=== PATIENT | male | born 1965 | race Caucasian/White ===

== ENCOUNTER 2020-07-16 14:07 | Emergency (ER) | payer SELFPAY ==
[~2020-07-16] VITALS: Ht 162.6 cm; Wt 63.5 kg
--- NOTE | 2020-07-16 14:07 | NUR ---
Patient BIBA ALS, transferred to bed 10. RN evaluating the patient at bedside.
[2020-07-16 14:16] VITALS: BP 112/53
--- NOTE | 2020-07-16 14:25 | NUR ---
55 Y/O M YAIRJennifer FROM [facility]. PER EMS, PT ONE HOUR INTO DIALYSIS WHEN BEGUN FEELING WEAK AND DIZZY. DIALYSIS STOPPED AT FACILITY AND WAS GIVEN 1 LITTER NS BOLUS/OXYGEN. PER EMS PT IMPROVED AND WEAKNESS/DIZZINESS RESOLVED. PT SENT BY DIALYSIS FOR FURTHER EVALUATION. PT PRESENTS A/OX4, TURKMEN PRIMARY,EUPNIC,VSS. PER PT FEELS BETTER, DIALYSIS TREATMENT M/W/F - 4 HOUR SESSIONS. PT WITH RIGHT UPPER CHEST DIALYSIS ACCESS. PT NKA. HX RENAL FAILURE,DM,HTN.
--- NOTE | 2020-07-16 14:34 | NUR ---
RAD AT BEDSIDE
--- NOTE | 2020-07-16 14:44 | NUR ---
EMT AT BEDSIDE FOR EKG
[2020-07-16 15:07] LABS: BASOPHILS # (AUTO) 0.1 K/uL (0.00-0.22); EOSINOPHILS # (AUTO) 0.4 K/uL (0-0.4); EOSINOPHILS % (AUTO) 2.7 % (0.0-4.0); LYMPHOCYTES # (AUTO) 0.9 K/uL (2.0-11.5); LYMPHOCYTES % (AUTO) 6.6 % (20.5-51.1); MEAN CORPUSCULAR HEMOGLOBIN 29 pg (27-31); MEAN CORPUSCULAR HGB CONC 32 g/dL (33-37); MEAN CORPUSCULAR VOLUME 89.5 fL (80-94); MONOCYTES # (AUTO) 1.2 K/uL (0.8-1.0); MONOCYTES % (AUTO) 8.7 % (1.7-9.3); PLATELET COUNT (AUTO) 281 K/uL (140-450); RED BLOOD CELL COUNT(AUTO) 3.46 MIL/uL (4.20-6.10); RED CELL DISTRIBUTION WIDTH 15.8 % (11.6-13.7); WHITE BLOOD COUNT (AUTO) 13.6 K/uL (4.8-10.8)
[2020-07-16 15:44] LABS: CREATINE KINASE MB 2.3 ng/mL (0-3.6)
[2020-07-16 16:30] LABS: ALBUMIN 2.4 g/dL (3.4-5.0); ANION GAP 15.9 (8-16); CARBON DIOXIDE 26.5 mmol/L (21-32); POTASSIUM 4.4 mmol/L (3.5-5.1); TOTAL BILIRUBIN 0.2 mg/dL (0.0-1.0)
[2020-07-16 16:32] LABS: CREATININE 5.4 mg/dL (0.6-1.3)
--- NOTE | 2020-07-16 16:43 | NUR ---
NOTIFIED LAB THAT ERMD ORDERED PT PTT/PT/INR
[2020-07-16 17:13] LABS: PROTHROMBIN TIME 10.2 secs (10.8-13.4)
[2020-07-16] MEDS ORDERED: ASPIRIN 81 MG TAB.CHEW PO ONE (17:55)
--- NOTE | 2020-07-16 18:02 | NUR ---
pt resting in [facility] srinivasan. Connected on bedside monitor.
--- NOTE | 2020-07-16 19:04 | NUR ---
REPORT RECEIVED FROM MAGGY HINKLE FOR CONTINUITY OF CARE
[2020-07-16 19:38] VITALS: BP 127/64
--- NOTE | 2020-07-16 19:38 | NUR ---
Patient discharged with v/s stable. Written and verbal after care instructions given and explained. Patient verbalized understanding. Wheel Chair Assisted with to car. IV Discontinued. ID Band Removed. All questions addressed prior to discharge. Advised to follow up with PMD.
== END 2020-07-16 19:38 | disposition home or self-care (01) ==
LOC: MED 14:07
DX: R53.1 Weakness (principal); I51.9 Heart disease, unspecified; E11.9 Type 2 diabetes mellitus without complications; R42 Dizziness and giddiness
CPT/HCPCS: 36415; 71045; 80053; 82550; 82553; 83690; 83880; 84484; 85025; 85610; 85730; 93005; 99285; Q0092

== ENCOUNTER 2020-09-03 13:14 | Inpatient (IN) | payer OTHER, SELFPAY ==
[~2020-09-03] VITALS: Ht 167.6 cm; Wt 59.0 kg
[2020-09-03 13:17] VITALS: BP 101/54
[2020-09-03] MEDS ORDERED: ONDANSETRON 4 MG/2 ML VIAL IVP ONE (13:30)
--- NOTE | 2020-09-03 13:30 | NUR ---
PT TAKEN TO BED 3.
--- NOTE | 2020-09-03 13:47 | NUR ---
DENY FROM DIALYSIS CENTER C/O N/V X1 TODAY; PT WAS AT DIALYSIS WAITING FOR TX, DID NOT RECEIVE DIALYSIS, WHILE WAITING FOR DIALYSIS PATIENT HAD VOMITING X1. PT HAS NO COMPLAINTS AT THIS TIME UPON ARRIVAL A, A, O x4, COOPERATIVE, MOVING ALL EXTS W/O DIFFICULTY CONNECTED TO VENDING MACHINE COIN COLLECTOR, IN NAD, VVS RESP EVEN AND UNLABORED, HOB ELEVATED NKDA, HX ESRD, DIALYSIS, LEFT ARM SHUNT, DM AWAITING EVALUATION/EXAMINATION BY MD, WILL CONTINUE TO MONITOR
[2020-09-03 14:12] LABS: BASOPHILS # (AUTO) 0.1 K/uL (0.00-0.22); BASOPHILS % (AUTO) 0.8 % (0.0-2.0); EOSINOPHILS # (AUTO) 0.3 K/uL (0-0.4); HEMOGLOBIN 8.4 g/dL (12.0-18.0); LYMPHOCYTES # (AUTO) 0.9 K/uL (2.0-11.5); LYMPHOCYTES % (AUTO) 8.8 % (20.5-51.1); MEAN CORPUSCULAR HEMOGLOBIN 31 pg (27-31); MEAN CORPUSCULAR HGB CONC 34 g/dL (33-37); MEAN CORPUSCULAR VOLUME 91.5 fL (80-94); MONOCYTES # (AUTO) 0.7 K/uL (0.8-1.0); MONOCYTES % (AUTO) 6.8 % (1.7-9.3); NEUTROPHILS # (AUTO) 8.6 K/uL (1.8-7.7); NEUTROPHILS % (AUTO) 80.6 % (42.2-75.2); PLATELET COUNT (AUTO) 342 K/uL (140-450); RED BLOOD CELL COUNT(AUTO) 2.74 MIL/uL (4.20-6.10); WHITE BLOOD COUNT (AUTO) 10.7 K/uL (4.8-10.8)
[2020-09-03 14:45] LABS: ALBUMIN 2.9 g/dL (3.4-5.0); ANION GAP 13.3 (8-16); CARBON DIOXIDE 30.1 mmol/L (21-32); POTASSIUM 4.4 mmol/L (3.5-5.1); TOTAL BILIRUBIN 0.3 mg/dL (0.0-1.0)
[2020-09-03 15:02] LABS: CREATININE 5.4 mg/dL (0.6-1.3)
--- NOTE | 2020-09-03 15:03 | NUR ---
BUN 77, creatinine 5.4--critical values received from lab. Dr Hurd made aware
--- NOTE | 2020-09-03 19:30 | NUR ---
REPORT RECIEVED FROM AGENCY RN. TRANSFER OF CARE AT THIS TIME.
--- NOTE | 2020-09-03 19:31 | NUR ---
Detailed report given to ARIN Marsh for transfer of care Questions answered, orders and meds reviewed
[2020-09-03] MEDS ORDERED: cefTRIAXone 1,000 MG VIAL ONE (20:02)
--- NOTE | 2020-09-03 20:20 | NUR ---
right forearm iv infiltarted during ivpb infusion. IV DC'd. warm compress provided. pt reports no pain at site, no redness or bruising noted.
--- NOTE | 2020-09-03 20:30 | NUR ---
SANDWHICH AND WATER PROVIDED TO PT AFTER DIETARY DID NOT BRING PT DINNER TRAY. ALL PT NEEDS MET AT THIS TIME. BED LOCKED AND IN LOWEST POSITION. SIDE RAILS X1
[2020-09-03] MEDS ORDERED: LORazepam 1 MG TAB PO PRN (20:45)
[2020-09-03] MEDS ORDERED: HYDROcodone/APAP 5/325 MG 1 TAB TAB PO PRN (20:45)
[2020-09-03] MEDS ORDERED: ACETAMINOPHEN 325 MG TAB PO PRN (20:45)
[2020-09-03] MEDS ORDERED: ZOLPIDEM 5 MG TAB PO PRN (20:45)
[2020-09-03] MEDS ORDERED: ONDANSETRON 4 MG/2 ML VIAL IVP PRN (20:45)
[2020-09-03] MEDS: AZITHROMYCIN 500 MG in DEXTROSE 5% 250 ML IV SCH (21:00)
--- NOTE | 2020-09-03 21:30 | NUR ---
CALLED TO GIVE REPORT TO ARIN MACHADO.
[2020-09-03 21:45] VITALS: BP 116/58
--- NOTE | 2020-09-03 21:45 | NUR ---
Patient will be admitted to care of ALEXANDRO. Admited to TELE. Will go to room 111B. Belongings list completed. Report to ARIN MACHADO.
--- NOTE | 2020-09-03 21:45 | NUR ---
RECEIVED REPORT FROM ER NURSE, BELLA. PT ON TELE, AOX4 ON ROOM AIR. NO S/S RESPIRATORY DISTRESS. NO C/O PAIN AT THIS TIME. IV SITE AFSHIN 20G, PATENT AND INTACT. HAS LEFT UPPER ARM SHUNT, HAS DIALYSIS ACCESS ON RIGHT CHEST. BOWEL SOUNDS ACTIVE. SKIN WARM AND DRY. HAS LEFT FOOT WRAPPED WITH DRESSING WITH PROTECTIVE SANDALS ON. ORIENTED PT TO ROOM AND HOSPITAL. SAFETY MEASURES IN PLACE. CALL LIGHT WITHIN REACH. WILL CONTINUE TO MONITOR. VS: TEMP 97.8, O2 SAT 99%, RR 18, BP 116/58, HR 81
[2020-09-03] MEDS ORDERED: AZITHROMYCIN 500 MG INJ VIAL IV ONE (22:09)
--- NOTE | 2020-09-03 22:45 | NUR ---
ADMINISTERED SCHEDULED MEDICATION. PT TOLERATED WELL. NO DISTRESS NOTED. WILL CONTINUE TO MONITOR
--- NOTE | 2020-09-03 23:15 | NUR ---
PT AWAKE IN BED, DENIES PAIN, DENIES NAUSEA AND VOMITING. NO DISTRESS NOTED. WILL CONTINUE TO MONITOR
[2020-09-04] VITALS: BP 130/60
--- NOTE | 2020-09-04 00:20 | NUR ---
PT ASLEEP IN BED. RESPIRATIONS EVEN AND UNLABORED. NO DISTRESS NOTED. WILL CONTINUE TO MONITOR
--- NOTE | 2020-09-04 02:59 | NUR ---
PT SLEEPING IN BED COMFORTABLY. NO DISTRESS NOTED. WILL CONTINUE TO MONITOR
[2020-09-04 04:00] VITALS: BP 109/94
--- NOTE | 2020-09-04 04:31 | NUR ---
PT AWAKE IN BED HAVING A SNACK. DENIES NAUSEA, VOMITING, PAIN. NO DISTRESS NOTED. WILL CONTINUE TO MONITOR
[2020-09-04 06:57] LABS: BASOPHILS # (AUTO) 0.1 K/uL (0.00-0.22); BASOPHILS % (AUTO) 1.1 % (0.0-2.0); EOSINOPHILS # (AUTO) 0.4 K/uL (0-0.4); EOSINOPHILS % (AUTO) 4.3 % (0.0-4.0); HEMATOCRIT 25.6 % (36-52); HEMOGLOBIN 8.4 g/dL (12.0-18.0); LYMPHOCYTES # (AUTO) 0.8 K/uL (2.0-11.5); LYMPHOCYTES % (AUTO) 10.1 % (20.5-51.1); MEAN CORPUSCULAR HEMOGLOBIN 31 pg (27-31); MEAN CORPUSCULAR HGB CONC 33 g/dL (33-37); MEAN CORPUSCULAR VOLUME 92.7 fL (80-94); MONOCYTES # (AUTO) 0.8 K/uL (0.8-1.0); NEUTROPHILS # (AUTO) 6.3 K/uL (1.8-7.7); NEUTROPHILS % (AUTO) 75.5 % (42.2-75.2); PLATELET COUNT (AUTO) 330 K/uL (140-450); RED BLOOD CELL COUNT(AUTO) 2.76 MIL/uL (4.20-6.10); RED CELL DISTRIBUTION WIDTH 15.7 % (11.6-13.7); WHITE BLOOD COUNT (AUTO) 8.3 K/uL (4.8-10.8)
--- NOTE | 2020-09-04 07:15 | NUR ---
ENDORSED PT TO DAY RN FOR CONTINUITY OF CARE. PT IS IN STABLE CONDITION
[2020-09-04 07:16] LABS: CHOL/HDL RATIO 3.4 (1-4.5); MAGNESIUM 2.6 mg/dL (1.8-2.4); PHOSPHORUS 5.5 mg/dL (2.5-4.9)
[2020-09-04 07:18] LABS: ALBUMIN 2.7 g/dL (3.4-5.0); ANION GAP 14.5 (8-16); CARBON DIOXIDE 27.3 mmol/L (21-32); POTASSIUM 4.8 mmol/L (3.5-5.1); TOTAL BILIRUBIN 0.3 mg/dL (0.0-1.0)
--- NOTE | 2020-09-04 07:20 | NUR ---
RECEIVED PT FROM BULL BUCKER NURSE, PT IS AWAKE AND ALERT IN BED, 20 G IV NOTED TO AFSHIN SALINE LOCK, IVAN SHUNT, R CHEST DIALYSIS ACCESS, ON ROOM AIR, TELE MONITOR ON, PT VERBALIZED HE MISSED DIALYSIS ON SUNDAY, CONTINENT, SAFETY AND FALL PRECAUTIONS IN PLACE, WILL CONTINUE TO MONITOR
[2020-09-04 08:00] VITALS: BP 155/59
[2020-09-04 08:13] LABS: CREATININE 6.2 mg/dL (0.6-1.3)
[2020-09-04] MEDS: DOCUSATE SODIUM 100 MG GELCAP PO SCH (08:15)
--- NOTE | 2020-09-04 09:15 | NUR ---
PT IS AWAKE AND WATCHING TV, VERBALIZED HIS MISSED DIALYSIS TREATMENT ON SUNDAY, WILL CONTACT NEPHRO MD TO INITIATE DIALYSIS ORDER AND TREATMENT, WILL CONTINUE TO MONITOR.
--- NOTE | 2020-09-04 11:00 | NUR ---
PT RESTING IN BED, NO DISTRESS NOTED, WILL CONTINUE TO MONITOR
[2020-09-04 12:00] VITALS: BP 159/66
--- NOTE | 2020-09-04 13:28 | NUR ---
DR. GARCIA CAME TO PT'S ROOM AND SPOKE TO PT AND INFORMED PT THAT HE HAD COORDINATED WITH THE GLOBAL COMMODITY MANAGER AND VERBALIZED TO PT THAT DIALYSIS WILL BE DONE TODAY AND PT VERBALIZED UNDERSTANDING.
--- NOTE | 2020-09-04 15:06 | NUR ---
DIALYSIS NURSE, RAMONA CALLED AND SAID THAT DR. TAMAYO CALLED HER REGARDING PT AND ASKED ALSO ABOUT THE PT'S BMP AND HEMATOLOGY RESULT AND VERBALIZED THAT PT WILL HAVE DIALYSIS TODAY
[2020-09-04 16:00] VITALS: BP 159/72
[2020-09-04] MEDS ORDERED: MIDODRINE 5 MG TAB PO PRN (18:05)
--- NOTE | 2020-09-04 18:30 | NUR ---
PROAMATINE WAS NOT GIVEN TO PT DUE TO BP IS 200/80, PULSE IS 84, [id number] IS AT 97%.
--- NOTE | 2020-09-04 18:30 | NUR ---
DIALYSIS NURSE IS AT BEDSIDE AND BEGINNING DIALYSIS TREATMENT, WILL CONTINUE TO MONITOR.
--- NOTE | 2020-09-04 19:40 | NUR ---
ENDORSED PT TO INTERNATIONAL BANK MANAGER NURSE FOR CONTINUITY OF CARE.
--- NOTE | 2020-09-04 19:41 | NUR ---
RECEIVED BEDSIDE ENDORSEMENT FROM AM SHIFT RN. ON HD W/ DIALYSIS NURSE AT BEDSIDE, ON ROOM AIR, NO DISTRESS, AFSHIN G 20, INTACT, WITH IVAN AV SHUNT BUT THE HD NURSE IS USING THE RT UPPER CHEST TUNNELLED CATHETER FOR DIALYSIS, WITH LEFT PLANTAR AREA OPEN WOUND PER ENDORSED WITH CONSULT. SAFETY MEASURES IN PLACE, FALL PROTOCOL IN PLACE, PLAN OF CARE DISCUSSED, CALL LIGHT WITHIN REACH.
[2020-09-04 20:00] VITALS: BP 140/68
--- NOTE | 2020-09-04 22:40 | NUR ---
INFORMED GRANT ADMINISTRATOR DR. ROWE FOR TROP 0.504. PT IS NOT IN DISTRESS, NO C/O PAIN, PT SLEEPING, RESPIRATION EVEN AND UNLABORED. NO NEW ORDER. NOTED. WILL CONTINUE TO MONITOR.
--- NOTE | 2020-09-04 22:58 | NUR ---
DIALYSIS WAS FINISHED AT 2215. 3 LITERS WAS TAKEN OUT. ROCEPHIN IV GIVEN ORDERED, NO A/R NOTED. NO DISTRESS, NO C/O PAIN.
[2020-09-04] MEDS: AZITHROMYCIN 500 MG in DEXTROSE 5% 250 ML IV SCH (23:36)
--- NOTE | 2020-09-04 23:38 | NUR ---
ZITHROMAX IV GIVEN ORDERED, NO A/R NOTED.
[2020-09-05] VITALS: BP 159/65
--- NOTE | 2020-09-05 01:00 | NUR ---
SLEEPING COMFORTABLY IN BED.
--- NOTE | 2020-09-05 02:00 | NUR ---
LAYING SUPINE IN BED ASLEEP. NO APPEARANCE OF DISCOMFORT NOTED.
[2020-09-05 04:00] VITALS: BP 160/68
--- NOTE | 2020-09-05 04:00 | NUR ---
VS STABLE. NO COMPLAINT OF PAIN 0/10.
--- NOTE | 2020-09-05 07:04 | NUR ---
ABLE TO SLEEP WELL. CONDITION REMAIN STABLE. ENDORSED TO AM SHIFT NURSE FOR CONTINUITY OF CARE.
--- NOTE | 2020-09-05 07:05 | NUR ---
PATIENT HAS BEEN SCREENED AND CATEGORIZED HIGH NUTRITION RISK. PATIENT WILL BE SEEN WITHIN 1-2 DAYS OF ADMISSION. 09/05/20-09/06/20 SAMUEL VANG MS, RDN
[2020-09-05 08:00] VITALS: BP 148/52
[2020-09-05] MEDS: DOCUSATE SODIUM 100 MG GELCAP PO SCH (09:13)
--- NOTE | 2020-09-05 09:16 | NUR ---
SCHEDULED MEDICATIONS DUE GIVEN. WILL CONTINUE TO MONITOR.
[2020-09-05 10:22] LABS: BASOPHILS # (AUTO) 0.1 K/uL (0.00-0.22); BASOPHILS % (AUTO) 1.2 % (0.0-2.0); EOSINOPHILS # (AUTO) 0.4 K/uL (0-0.4); HEMATOCRIT 28.2 % (36-52); HEMOGLOBIN 9.3 g/dL (12.0-18.0); LYMPHOCYTES # (AUTO) 0.6 K/uL (2.0-11.5); MEAN CORPUSCULAR HEMOGLOBIN 31 pg (27-31); MEAN CORPUSCULAR HGB CONC 33 g/dL (33-37); MEAN CORPUSCULAR VOLUME 93.7 fL (80-94); MONOCYTES # (AUTO) 0.5 K/uL (0.8-1.0); MONOCYTES % (AUTO) 7.7 % (1.7-9.3); NEUTROPHILS # (AUTO) 4.8 K/uL (1.8-7.7); NEUTROPHILS % (AUTO) 75.1 % (42.2-75.2); PLATELET COUNT (AUTO) 350 K/uL (140-450); RED BLOOD CELL COUNT(AUTO) 3.01 MIL/uL (4.20-6.10); RED CELL DISTRIBUTION WIDTH 16.2 % (11.6-13.7); WHITE BLOOD COUNT (AUTO) 6.4 K/uL (4.8-10.8)
[2020-09-05] MEDS ORDERED: INSULIN LISPRO SLIDING SCALE 100 UNITS/ML VIAL SUBQ PRN (10:40)
[2020-09-05] MEDS ORDERED: DEXTROSE 50% 50 ML SYR IVP PRN (10:40)
[2020-09-05 10:42] LABS: ALBUMIN 2.6 g/dL (3.4-5.0); ANION GAP 15.6 (8-16); CARBON DIOXIDE 26.6 mmol/L (21-32); MAGNESIUM 2.2 mg/dL (1.8-2.4); PHOSPHORUS 4.5 mg/dL (2.5-4.9); POTASSIUM 4.2 mmol/L (3.5-5.1); TOTAL BILIRUBIN 0.3 mg/dL (0.0-1.0)
[2020-09-05 10:47] LABS: CREATININE 4.5 mg/dL (0.6-1.3)
[2020-09-05] MEDS ORDERED: NIFE90TE45 PO (11:15)
[2020-09-05] MEDS ORDERED: INSU100V6 SQ (11:15)
[2020-09-05] MEDS ORDERED: LOSA50TA57 PO (11:15)
[2020-09-05] MEDS ORDERED: MULT-574 (11:15)
[2020-09-05] MEDS ORDERED: ASPI-1856 PO (11:15)
[2020-09-05] MEDS ORDERED: INSU100I7 SQ (11:15)
[2020-09-05] MEDS ORDERED: ATOR40TA40 (11:15)
[2020-09-05] MEDS ORDERED: [UNRECOGNIZED DRUG - CODE] PO (11:15)
[2020-09-05] MEDS ORDERED: AZIT250T3 PO (11:16)
[2020-09-05 11:25] LABS: EOSINOPHILS % (AUTO) 6.7 % (0.0-4.0); LYMPHOCYTES % (AUTO) 9.3 % (20.5-51.1)
[2020-09-05] MEDS ORDERED: INSULIN LISPRO 100 UNITS/ML VIAL SUBQ SCH (11:30)
[2020-09-05] MEDS ORDERED: BLOOD GLUCOSE MONITORING 1 DEV DEV FS SCH (11:30)
[2020-09-05] MEDS ORDERED: LOSARTAN 50 MG TAB PO SCH (11:30)
[2020-09-05] MEDS ORDERED: ECOTRIN 81 MG TABEC PO SCH (11:30)
[2020-09-05] MEDS ORDERED: NIFEdipine 60 MG TABER PO SCH (11:30)
[2020-09-05] MEDS ORDERED: INSULIN LANTUS 100 UNITS/ML 10 ML VIAL SUBQ SCH (11:30)
[2020-09-05 12:00] VITALS: BP 103/65
--- NOTE | 2020-09-05 12:41 | NUR ---
SCHEDULED MEDICATIONS DUE GIVEN. WILL CONTINUE TO MONITOR.
[2020-09-05] MEDS ORDERED: hydrALAZINE 10 MG TAB PO SCH (13:00)
--- NOTE | 2020-09-05 15:00 | NUR ---
DISCHARGE INSTRUCTIONS PROVIDED TO PATIENT IN PREFERRED LANGUAGE OF WELSH. INSTRUCTIONS ON FOLLOW-UP VISIT WITH PCP, FIELD ARTILLERY OFFICER AND AIR BRAKE MECHANIC PROVIDED TO PATIENT. ANSWERED ALL OF PATIENT'S QUESTIONS REGARDING DISCHARGE. INSTRUCTIONS ON NEW/CHANGED MEDICATION REGIMEN AND SIDE EFFECTS, PROVIDED. IV SITE REMOVED WITH MINIMAL BLOOD AND LUMEN COMPLETELY INTACT. PATIENT AWAITING FOR FAMILY MEMBER TO ARRIVE TO TAKE PATIENT HOME. WILL CONTINUE TO MONITOR.
--- NOTE | 2020-09-05 16:30 | NUR ---
PATIENT'S FAMILY AT [facility] READY TO TAKE PATIENT HOME. IV SITE REMOVED WITH MINIMAL BLOOD AND LUMEN COMPLETELY INTACT. ID BANDS REMOVED. ESCORTED PATIENT DOWN TO [facility] VIA WHEELCHAIR. PATIENT DISCHARGED AT THIS TIME TO HOME IN A PRIVATE VEHICLE IN STABLE CONDITION.
[2020-09-06] MEDS ORDERED: ATORVASTATIN 20 MG TAB PO SCH (09:00)
[2020-09-06] MEDS ORDERED: VIT-B COMP/VIT-C/FOLIC ACID 1 TAB PO SCH (09:00)
--- NOTE | 2020-09-06 10:46 | NUR ---
Wound consult not done, pt. discharged.
== END 2020-09-05 17:26 | disposition home or self-care (01) | DRG 139 ==
LOC: MED 13:14 → MTU 18:27
PROVIDERS: ADMIT Hospitalist; ATTEND Hospitalist
PROC: 5A1D70Z Performance of Urinary Filtration, Intermittent, Less than 6 Hours Per Day (ICD-10-PCS; principal; 2020-09-04)
DX: J18.9 Pneumonia, unspecified organism (principal); I95.9 Hypotension, unspecified; Z20.828 Contact with and (suspected) exposure to other viral communicable diseases; I12.0 Hypertensive chronic kidney disease with stage 5 chronic kidney disease or end stage renal disease; E78.5 Hyperlipidemia, unspecified; I25.10 Atherosclerotic heart disease of native coronary artery without angina pectoris; G40.909 Epilepsy, unspecified, not intractable, without status epilepticus; E11.21 Type 2 diabetes mellitus with diabetic nephropathy; E11.618 Type 2 diabetes mellitus with other diabetic arthropathy; E11.610 Type 2 diabetes mellitus with diabetic neuropathic arthropathy; D64.9 Anemia, unspecified; E83.39 Other disorders of phosphorus metabolism; N18.6 End stage renal disease; E11.22 Type 2 diabetes mellitus with diabetic chronic kidney disease; Z99.2 Dependence on renal dialysis; Z95.1 Presence of aortocoronary bypass graft; Z79.899 Other long term (current) drug therapy; Z79.4 Long term (current) use of insulin; Z86.19 Personal history of other infectious and parasitic diseases
CPT/HCPCS: 36415; 71045; 71046; 80053; 83036; 83605; 83735; 83880; 84100; 84484; 85025; 86140; 87040; 87081; 93005; J0456; J0696; J1644; J1815; J2405; J7060

== ENCOUNTER 2020-12-18 09:59 | Emergency (ER) | payer OTHER, SELFPAY ==
[~2020-12-18] VITALS: Ht 167.6 cm; Wt 63.5 kg
[~2020-12-18 09:59] MED LIST: ASPI-1856 PO; ATOR40TA40; AZIT250T3 PO; INSU100I7 SQ; INSU100V6 SQ; LOSA50TA57 PO; MULT-574; NIFE90TE45 PO; [UNRECOGNIZED DRUG - CODE] PO
[2020-12-18 10:05] VITALS: BP 101/55
[2020-12-18] MEDS ORDERED: ONDANSETRON 4 MG/2 ML VIAL IVP ONE (10:25)
[2020-12-18 10:51] LABS: BASOPHILS # (AUTO) 0.1 K/uL (0.00-0.22); BASOPHILS % (AUTO) 1.3 % (0.0-2.0); EOSINOPHILS # (AUTO) 0.5 K/uL (0-0.4); EOSINOPHILS % (AUTO) 5.4 % (0.0-4.0); HEMATOCRIT 33.5 % (36-52); HEMOGLOBIN 10.8 g/dL (12.0-18.0); LYMPHOCYTES # (AUTO) 0.9 K/uL (2.0-11.5); LYMPHOCYTES % (AUTO) 9.7 % (20.5-51.1); MEAN CORPUSCULAR HEMOGLOBIN 30 pg (27-31); MEAN CORPUSCULAR HGB CONC 32 g/dL (33-37); MEAN CORPUSCULAR VOLUME 93.3 fL (80-94); MONOCYTES # (AUTO) 0.9 K/uL (0.8-1.0); MONOCYTES % (AUTO) 9.7 % (1.7-9.3); NEUTROPHILS % (AUTO) 73.9 % (42.2-75.2); PLATELET COUNT (AUTO) 410 K/uL (140-450); RED BLOOD CELL COUNT(AUTO) 3.59 MIL/uL (4.20-6.10); RED CELL DISTRIBUTION WIDTH 17.1 % (11.6-13.7); WHITE BLOOD COUNT (AUTO) 9.5 K/uL (4.8-10.8)
[2020-12-18 10:59] LABS: CARBON DIOXIDE 28.5 mmol/L (21-32); POTASSIUM 4.5 mmol/L (3.5-5.1)
[2020-12-18 11:01] LABS: CREATININE 5.6 mg/dL (0.6-1.3)
[2020-12-18 12:18] VITALS: BP 152/63
== END 2020-12-18 12:17 | disposition home or self-care (01) ==
LOC: MED 09:59
DX: T44.7X1A Poisoning by beta-adrenoreceptor antagonists, accidental (unintentional), initial encounter (principal); E11.9 Type 2 diabetes mellitus without complications; I10 Essential (primary) hypertension; Z79.899 Other long term (current) drug therapy; Z87.448 Personal history of other diseases of urinary system; Y92.89 Other specified places as the place of occurrence of the external cause
CPT/HCPCS: 36415; 80048; 83735; 85025; 93005; 96374; 99284; J2405

== ENCOUNTER 2021-02-03 16:39 | Emergency (ER) | payer OTHER, SELFPAY ==
[~2021-02-03] VITALS: Ht 172.7 cm; Wt 72.6 kg
[~2021-02-03 16:39] MED LIST changes: -AZIT250T3 PO; +CEPH250C16 PO
[2021-02-03 16:47] VITALS: BP 154/56
--- NOTE | 2021-02-03 16:55 | NUR ---
PATIENT WHEELCHAIR ASSISTED TO BED 07
--- NOTE | 2021-02-03 17:08 | NUR ---
DR RING AT BEDSIDE
--- NOTE | 2021-02-03 17:15 | NUR ---
55 Y/O MALE C/O LEFT FOOT PAIN AND BLEEDING X THIS MORNING. PT HAD DIABETIC FOOT (HEEL) ULCER THAT RUPTURED AFTER LEAVING PCP TODAY. PT SISTER WRAPPED HIS FOOT WITH GAUZE. PT DENIES PAIN AT THIS TIME. DENIES N/V. UNCONTROLLED BLEEDING AT THIS TIME. PT UNABLE TO AMBULATE, USES WHEELCHAIR AT HOME. CAP REFILL <3 SECONDS WITH RADIAL PULSES +2. PT A/O X4 WITH EVEN AND UNLABORED RESPIRATIONS. PT LAYING IN BED WITH BED IN LOWEST POSITION, BRAKES LOCKED, X1 SIDERAIL UP. PT JHONATHAN MADE AWARE PMH: DM1, DIALYSIS (M,W,F), HTN. SHUNT UPPER RIGHT ARM NKDA
[2021-02-03] MEDS ORDERED: SILVER NITRATE APPLICATOR 1 EA SWAB TP ONE ×2 (17:23→18:40)
[2021-02-03 18:42] VITALS: BP 154/56
--- NOTE | 2021-02-03 18:43 | NUR ---
Patient discharged with v/s stable. Written and verbal after care instructions given and explained. Patient verbalized understanding. Ambulatory with steady gait. All questions addressed prior to discharge. Advised to follow up with PMD. Addendum: 02/03/21 at 1922 by [facility] PT WHEELCHAIR ASSISTED TO LOBBY.
== END 2021-02-03 18:43 | disposition home or self-care (01) ==
LOC: MED 16:39
DX: L97.529 Non-pressure chronic ulcer of other part of left foot with unspecified severity (principal); E11.22 Type 2 diabetes mellitus with diabetic chronic kidney disease; I12.0 Hypertensive chronic kidney disease with stage 5 chronic kidney disease or end stage renal disease; N18.6 End stage renal disease; Z79.899 Other long term (current) drug therapy
CPT/HCPCS: 99282

== ENCOUNTER 2021-08-22 20:02 | Emergency (ER) | payer OTHER ==
[~2021-08-22] VITALS: Ht 172.7 cm; Wt 63.5 kg
[~2021-08-22 20:02] MED LIST changes: +ATOR20TA40 PO; -CEPH250C16 PO; +DAPT500V17 IV; +[UNRECOGNIZED DRUG - CODE] IV
--- NOTE | 2021-08-22 20:04 | NUR ---
LIZA BARCLAY VIA GURNEY TO BED 06.
[2021-08-22 20:05] VITALS: BP 163/78
--- NOTE | 2021-08-22 20:10 | NUR ---
PATIENT STATES HE IS A DIALYSIS PATIENT AND LAST DIALYSIS TX WAS DONE YESTERDAY, STATES HE HAS HAD UNCONTROLLABLE FACIAL SPASMS MOSTLY ON THE RIGHT SIDE, ALSO STATES HE NOTICED SWELLING OF HIS TONGUE, BUT ABLE TO SPEAK AND EAT NORMALLY. HAS NO CURRENT PAIN. OBSERVED EVEN FACIAL MOVEMENTS, CLEAR SPEECH, AND EVEN STRONG MUSCLE STRENGHT. PEERLA. BREATHING EVENLY AND UNLABORED. NO SIGNS OF ACUTE DISTRESS. VSS. PMH: DM, KIDNEY FAILURE ON DIALYSIS 3X/WEEK, LEFT UPPER ARM SHUNT , S/P AMPUTATION RIGHT BELOW KNEE, HYDROCEPHALUS WITH SHUNT IN PLACE. ALL SAFETY MEASURES IN PLACE, BED AT LOWEST POSITION AND LOCKED. WILL CONTINUE TO MONITOR.
--- NOTE | 2021-08-22 23:30 | NUR ---
Patient being evaluated by physician at bedside.
[2021-08-22] MEDS ORDERED: CLONIDINE HYDROCHLORIDE 0.1 MG TAB PO ONE (23:35)
--- NOTE | 2021-08-23 01:00 | NUR ---
SPOKE WITH NEXT OF KIN VIA TELEPHONE, STATES PATIENT IS A RESIDENT OF [facility] WHO WILL TRANSPORT HIM BACK WHEN DISCHARGED. NOTIFIED [facility] IN [place] REGARDING DISCHARGE ARRANGEMENTS AND TRANSPORTATION, PER SAJAN, THEY WILL NOT ARRANGE TRANSPORTATION.
--- NOTE | 2021-08-23 03:15 | NUR ---
PATIENT OBSERVED IN BED SLEEPING WITH EYES CLOSED. VSS. DENIED ANY PAIN. PATIENT MADE AWARE OF DISCHARGE STATUS. NO SIGNS OF ACUTE DISTRESS. WILL CONTINUE TO MONITOR. ALL SAFETY MEASURES IN PLACE.
--- NOTE | 2021-08-23 04:55 | NUR ---
HANDOFF RECEIVED FROM ARIN THAPA. ASSUMED CARE. PT SEEN WITH EYES CLOSED. VISIBLE CHEST RISE AND FALL NOTED. BED IN LOWEST POSITION. WILL CONTINUE TO MONITOR.
--- NOTE | 2021-08-23 06:30 | NUR ---
Patient appears to be resting comfortably in bed. Respirations even and unlabored. Will continue to monitor.
--- NOTE | 2021-08-23 07:13 | NUR ---
REPORT GIVEN TO ARIN OAKLEY. TRANSFER OF CARE AT THIS TIME.
--- NOTE | 2021-08-23 07:20 | NUR ---
Patient appears to be resting comfortably in bed. Vital Signs within normal limits. Respirations even and unlabored. AV Shunt to the left arm with + bruit/thrill.
--- NOTE | 2021-08-23 09:49 | NUR ---
PT TO BE PICKED UP AT 1130 TO GO BACK TO FACILITY
[2021-08-23] MEDS ORDERED: LORazepam 2 MG/ML VIAL IM ONE (10:10)
[2021-08-23] MEDS ORDERED: levETIRAcetam 500 MG TAB PO ONE (10:10)
[2021-08-23] MEDS ORDERED: levETIRAcetam 500 MG TAB ONE (10:11)
[2021-08-23] MEDS ORDERED: LORazepam 2 MG/ML VIAL ONE (10:12)
--- NOTE | 2021-08-23 10:18 | NUR ---
ERMD MADE AWARE THAT PT STATED THAT HE FELT A SEIZURE COMMING ON. SEIZURE PRECATUTIONS IN PLACE, SUCTIONING FUNCTIONING. NEW ORDERS NOTED AND CARRIED OUT.
[2021-08-23 11:05] VITALS: BP 157/65
--- NOTE | 2021-08-23 11:05 | NUR ---
MEDICAL TRANSPORT TO TRANSPORT PT VIA GURNEY TO [facility]. Patient discharged with v/s stable. Written and verbal after care instructions given and explained. Patient verbalized understanding. Medical Transport to [facility]pc. All questions addressed prior to discharge. Advised to follow up with PMD.
== END 2021-08-23 11:05 ==
LOC: MED 20:02
DX: G51.39 Clonic hemifacial spasm, unspecified (principal); E11.22 Type 2 diabetes mellitus with diabetic chronic kidney disease; I12.0 Hypertensive chronic kidney disease with stage 5 chronic kidney disease or end stage renal disease; N18.6 End stage renal disease; Z79.4 Long term (current) use of insulin; Z79.899 Other long term (current) drug therapy; Z89.511 Acquired absence of right leg below knee
CPT/HCPCS: 96372; 99285; J2060

== ENCOUNTER 2022-03-13 16:13 | Emergency (ER) | payer OTHER ==
[~2022-03-13] VITALS: Ht 160 cm; Wt 56.8 kg
--- NOTE | 2022-03-13 16:13 | NUR ---
PT BIBA TO BED 10
[2022-03-13 16:16] VITALS: BP 230/113
--- NOTE | 2022-03-13 16:43 | NUR ---
PT TAKEN TO CT VIA TAWANNA
--- NOTE | 2022-03-13 16:54 | NUR ---
57 Y/O MALE BIBA FROM DIAYLSIS CENTER DUE TO BECOMING ALTERED. PT NORMALLY A&OX4, BUT CURRENTLY A&OX2 TO NAME/PLACE. PT DENIES CHEST PAIN, SOB. PT DENIES FEVER OR CHILLS. LUNG SOUNDS CTA. NIH NEGATIVE. CHANNEL LIP WETTER STRENGTH EQUAL/STRONG. BP 230/113, HR 88, T 97.4, O2SAT 95 % ROOM AIR. BED LOCKED IN LOWEST POSITION. BED RAILX1. PT PLACED ON MONITOR. PMH: ESRD, DM NKA
[2022-03-13 17:23] LABS: BASOPHILS # (AUTO) 0.1 K/uL (0.00-0.22); BASOPHILS % (AUTO) 1.3 % (0.0-2.0); EOSINOPHILS # (AUTO) 0.3 K/uL (0-0.4); EOSINOPHILS % (AUTO) 4.7 % (0.0-4.0); HEMATOCRIT 39.7 % (36-52); HEMOGLOBIN 13.1 g/dL (12.0-18.0); LYMPHOCYTES # (AUTO) 0.8 K/uL (2.0-11.5); LYMPHOCYTES % (AUTO) 11.7 % (20.5-51.1); MEAN CORPUSCULAR HEMOGLOBIN 28 pg (27-31); MEAN CORPUSCULAR HGB CONC 33 g/dL (33-37); MEAN CORPUSCULAR VOLUME 85.6 fL (80-94); MONOCYTES # (AUTO) 0.5 K/uL (0.8-1.0); MONOCYTES % (AUTO) 7.9 % (1.7-9.3); NEUTROPHILS # (AUTO) 5.1 K/uL (1.8-7.7); NEUTROPHILS % (AUTO) 74.4 % (42.2-75.2); PLATELET COUNT (AUTO) 260 K/uL (140-450); RED BLOOD CELL COUNT(AUTO) 4.64 MIL/uL (4.20-6.10); WHITE BLOOD COUNT (AUTO) 6.9 K/uL (4.8-10.8)
[2022-03-13 17:38] LABS: ALBUMIN 3.8 g/dL (3.4-5.0); ANION GAP 13.3 (8-16); CARBON DIOXIDE 31.1 mmol/L (21-32); CREATININE 3.5 mg/dL (0.6-1.3); POTASSIUM 3.4 mmol/L (3.5-5.1); TOTAL BILIRUBIN 0.5 mg/dL (0.0-1.0)
[2022-03-13] MEDS ORDERED: hydrALAZINE 20 MG/ML VIAL IVP ONE (18:30)
--- NOTE | 2022-03-13 18:44 | NUR ---
LAB AT PT BEDSIDE
--- NOTE | 2022-03-13 18:50 | NUR ---
PT TAKEN TO CT VIA TAWANNA
--- NOTE | 2022-03-13 19:30 | NUR ---
Pt report given to ARIN JIMENEZ. Transfer of care at this time.
[2022-03-13] MEDS ORDERED: ASPIRIN 325 MG TAB PO ONE (19:50)
--- NOTE | 2022-03-13 20:01 | NUR ---
PT IS AWAKE AND ALERT. PT STATES HE FEELS GOOD. PT MEDICATED PER ERMD ORDERS. PT GIVEN AN EXTRA BLANKET. ALL NEEDS MET AT THIS TIME.
[2022-03-13] MEDS ORDERED: CLONIDINE HYDROCHLORIDE 0.1 MG TAB PO ONE ×2 (20:40→21:45)
[2022-03-13] MEDS ORDERED: LABETALOL 100 MG/20 ML VIAL IVP ONE ×2 (20:40→21:45)
--- NOTE | 2022-03-13 21:00 | NUR ---
RECIEVED VERBAL CONSENT FOR TRANSFER TO [facility] BY SISTER KEITH, ON LINE WELL.
--- NOTE | 2022-03-13 21:00 | NUR ---
AND I NOTICED PT HAS PERIODS OF CONFUSION, NOT ABLE TO GIVE NAME NOR WHERE HE IS. PER NITISH PT WAS A&0X4. WE SPOKE TO KEITH, SISTER OF PT AND SHE STATED HE DOES HAVE MOMENTS OF CONFUSION BUT NOT TOO THE POINT WHERE HE FORGETS WHO SHE IS.
--- NOTE | 2022-03-13 21:26 | NUR ---
RECEIVED VERBAL ORDER FROM TO GIVE LABETOLOL 20MG IVP AND CATAPRES 0.2MG FOR BP OF 212/98.
--- NOTE | 2022-03-13 22:19 | NUR ---
CALLED AND GAVE REPORT TO ARIN ROJO AT [facility].
--- NOTE | 2022-03-13 22:20 | NUR ---
PT IS RESTING, EQUAL RISE AND FALL OF CHEST WALL. OPENS EYES TO SOUND. ALL NEEDS MET AT THIS TIME. BED LOCKED IN LOWEST POSITION, SIDE RAILS X2 FOR SAFETY.
--- NOTE | 2022-03-13 22:34 | NUR ---
PT HAD A BM, PT'S DIAPER CHANGED. PERINEAL CARE PERFORMED. ALL NEEDS MET AT THIS TIME.
--- NOTE | 2022-03-13 22:40 | NUR ---
[facility] CALLED FOR ROOM # ICU [id number] & RN # [phone]
--- NOTE | 2022-03-13 23:02 | NUR ---
REPORT GIVEN TO ARIN CHANDLER ICU RM 435 FROM [facility].
[2022-03-13 23:51] VITALS: BP 114/63
--- NOTE | 2022-03-13 23:51 | NUR ---
Patient to be transferred to [facility]. Is being transferred due to HIGHER LEVEL OF CARE. Receiving facility has accepting physician and available space. ER physician has signed transfer form. Patient or responsible democrat has agreed to transfer and signed form. Patient belongings inventoried and will be sent with patient. Copy of nursing notes, lab reports, EKG, Physicians Orders and X-rays to be sent with patient. Report called to ARIN CHANDLER at receiving facility. [facility] ambulance service has been called for transfer. ETA is 35MINS.
--- NOTE | 2022-03-13 23:51 | NUR ---
PATIENT IN TRANSPORT
== END 2022-03-13 23:51 | disposition short-term general hospital (02) ==
LOC: MED 16:13
DX: I16.1 Hypertensive emergency (principal); Z20.822 Contact with and (suspected) exposure to COVID-19; I10 Essential (primary) hypertension; I21.4 Non-ST elevation (NSTEMI) myocardial infarction; R41.82 Altered mental status, unspecified; Z98.890 Other specified postprocedural states; G93.89 Other specified disorders of brain; G91.9 Hydrocephalus, unspecified; E11.22 Type 2 diabetes mellitus with diabetic chronic kidney disease; N18.6 End stage renal disease; Z99.2 Dependence on renal dialysis; Z79.4 Long term (current) use of insulin
CPT/HCPCS: 36415; 70260; 70450; 71045; 74018; 80053; 83880; 84484; 85025; 87426; 93005; 96374; 96375; 99285; J0360; J3490